=== PATIENT | female | born 1950 | race Two or more races ===

== ENCOUNTER 2020-02-01 06:50 | Day surgery (SDC) | payer OTHER ==
[~2020-02-01] VITALS: Ht 157.5 cm; Wt 62.6 kg
[~2020-02-01 06:50] MED LIST: ASPI81CH43 PO; ATOR40TA52 PO; METF-370 PO; METO-169 PO; NITR0.4S29 SL
[2020-02-01] MEDS ORDERED: LIDOCAINE 2%HCL (LOCAL ANESTH.) INJ 20ML MDV ONE (07:47)
[2020-02-01] MEDS ORDERED: IODIXANOL 320MG/ML 100ML BTL IV ONE (07:47)
[2020-02-01] MEDS ORDERED: ANGIOMAX 250 MG VIAL IV ONE (08:08)
[2020-02-01] MEDS ORDERED: VERAPAMIL 2.5MG/ML INJ 2ML VIAL IV ONE (08:08)
[2020-02-01] MEDS ORDERED: HEPARIN SODIUM (PORCINE) 5000 UNITS/ML 1ML VIAL ONE (08:08)
[2020-02-01] MEDS ORDERED: fentaNYL CITRATE 100 MCG/2 ML VL ONE (08:09)
[2020-02-01] MEDS ORDERED: MIDAZOLAM HCL 1MG/1ML-2 ML VIAL ONE (08:09)
[2020-02-01] MEDS ORDERED: SODIUM CHL 0.9% 0 ML ONE (08:09)
[2020-02-01] MEDS ORDERED: NITROGLYCERIN 50MG/250ML 250 ML IV ONE (08:10)
[2020-02-01] MEDS ORDERED: diphenhdrAMINE HCL 50 MG/1 ML VL ONE (08:15)
[2020-02-01] MEDS ORDERED: ONDANSETRON HCL 4 MG/2 ML VIAL IV PRN (10:15)
[2020-02-01] MEDS ORDERED: ACETAMINOPHEN 500 MG TAB PO PRN (10:15)
[2020-02-01] MEDS ORDERED: HYDROcodone-ACET 5/325MG TAB PO PRN (10:15)
== END 2020-02-01 10:57 | disposition home or self-care (01) ==
LOC: CATH 06:50
PROVIDERS: ATTEND Internal Medicine
DX: R94.39 Abnormal result of other cardiovascular function study (principal); I25.118 Atherosclerotic heart disease of native coronary artery with other forms of angina pectoris; R52 Pain, unspecified; Z91.040 Latex allergy status; Z88.8 Allergy status to other drugs, medicaments and biological substances; Z79.899 Other long term (current) drug therapy; Z11.59 Encounter for screening for other viral diseases; Z98.890 Other specified postprocedural states
CPT/HCPCS: 71045; 93005; 93458; C1769; C1894; J1200; J1644; J2250; J3010; U0003; 99152; Q9967